=== PATIENT | male | born 1985 | race American Indian/Alaskan Native ===

== ENCOUNTER 2017-05-14 12:39 | Emergency (ER) | payer OTHER ==
[2017-05-14 12:46] VITALS: BP 118/67
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
[2017-05-14] MEDS ORDERED: MOTRIN PO ONE (14:01)
== END 2017-05-14 14:36 | disposition home or self-care (01) ==
LOC: ED 12:39
DX: M54.2 Cervicalgia (principal); M54.5 Low back pain; M25.561 Pain in right knee; J45.909 Unspecified asthma, uncomplicated; F17.200 Nicotine dependence, unspecified, uncomplicated
CPT/HCPCS: 99282